=== PATIENT | male | born 1995 | race Two or more races ===

== ENCOUNTER 2017-10-07 23:05 | Emergency (ER) | payer OTHER ==
[~2017-10-07] VITALS: Ht 190.5 cm; Wt 55.8 kg
[~2017-10-07 23:05] MED LIST: DOLOGEN CAPLET1 EACH PO
[2017-10-08] MEDS ORDERED: DOLOGEN CAPLET1 EACH PO (04:44)
[2017-10-08] MEDS ORDERED: ORPHENADRINE C100 MG PO (04:44)
== END 2017-10-08 04:55 | disposition home or self-care (01) ==
LOC: ER 23:05
DX: M54.5 Low back pain (principal)

== ENCOUNTER 2018-02-19 09:02 | Outpatient (CLI) | payer OTHER ==
[~2018-02-19 09:02] MED LIST changes: +ORPHENADRINE C100 MG PO
== END 2018-02-19 09:10 | disposition home or self-care (01) ==
LOC: LAB 09:02
DX: M54.5 Low back pain (principal); M62.830 Muscle spasm of back; Z11.3 Encounter for screening for infections with a predominantly sexual mode of transmission

== ENCOUNTER → 2020-12-05 14:11 | Outpatient (CLI) | payer OTHER ==
[~2020-12-05 14:11] MED LIST changes: +NORFLEX100MG PO
== END | disposition home or self-care (01) ==
LOC: MRI 13:45
PROVIDERS: ATTEND Chiropractor
DX: M54.5 Low back pain (principal)
CPT/HCPCS: 72148

== ENCOUNTER 2023-01-04 15:21 | Emergency (ER) | payer OTHER ==
[~2023-01-04] VITALS: Ht 188 cm; Wt 104.3 kg
[~2023-01-04 15:21] MED LIST changes: +GABAPENTIN300 M2 PO
== END 2023-01-04 18:10 | disposition home or self-care (01) ==
LOC: ER
DX: S00.93XA Contusion of unspecified part of head, initial encounter (principal); W22.8XXA Striking against or struck by other objects, initial encounter; Y93.9 Activity, unspecified; Y92.9 Unspecified place or not applicable; Y99.9 Unspecified external cause status

== ENCOUNTER 2023-06-10 13:19 | Outpatient (CLI) | payer OTHER | END 2023-06-10 13:44 | disposition home or self-care (01) | LOC: SONOGRAMA 13:19 | PROVIDERS: ATTEND Urology | DX: E29.1 Testicular hypofunction (principal); I86.1 Scrotal varices ==